=== PATIENT | male | born 1985 | race Caucasian/White ===

== ENCOUNTER 2020-06-07 14:42 | Emergency (ER) | payer SELFPAY ==
[~2020-06-07] VITALS: Ht 185.4 cm; Wt 73.5 kg
--- NOTE | 2020-06-07 15:14 | PHYS DOC ---
Past History Past Medical History: No Pertinent History (NINA AGUIRRE APRN) Past Surgical History: No Surgical History (NINA AGUIRRE APRN) Alcohol Use: None (NINA AGUIRRE APRN) Adult General Chief Complaint Chief Complaint: SKIN RASH/ABSCESS HPI HPI Patient is a 34 year old male patient who presents with abscess to right arm. States he had been shooting up amphetamines a few days ago, had missed his vein, and had noticed swelling and pain increasing since that time. States he had shot up in his other arm and has noticed a small red spot there as well. Denies any fevers, but states he has felt some chills on and off. He has not taken any medications for the discomfort. States pain seems to go down his arm, and he had some swelling in his right hand this morning but has gotten better. (NINA AGUIRRE APRN) Review of Systems Review of Systems Constitutional: Denies fever, states he felt some chills this morning. Eyes: Denies change in visual acuity, redness, or eye pain [] HENT: Denies nasal congestion or sore throat [] Respiratory: Denies cough or shortness of breath [] Cardiovascular: No additional information not addressed in HPI [] GI: Denies abdominal pain, nausea, vomiting, bloody stools or diarrhea [] : Denies dysuria or hematuria [] Musculoskeletal: Denies back pain, states pain to left elbow [] Integument: reports swelling and abscess to right arm, small erythematous area to left arm. Neurologic: Denies headache, focal weakness or sensory changes [] Endocrine: Denies polyuria or polydipsia [] All other systems were reviewed and found to be within normal limits, except as documented in this note. (NINA AGUIRRE APRN) Current Medications Current Medications Current Medications Medications (Trade) Dose Ordered Sig/Nile Start Time Stop Time Status Last Admin Dose Admin Ceftriaxone Sodium 1 gm/ Sodium Chloride 50 ml @ 100 mls/hr 1X ONCE 06/07/20 15:15 06/07/20 15:44 UNV (NINA AGUIRRE APRN) Physical Exam Physical Exam Constitutional: Well developed, well nourished, no acute distress, non-toxic appearance. [] HENT: Normocephalic, atraumatic, bilateral external ears normal, oropharynx moist, no oral exudates, nose normal. [] Eyes: PERRLA, EOMI, conjunctiva normal, no discharge. [] Neck: Normal range of motion, no tenderness, supple, no stridor. [] Cardiovascular:Heart rate regular rhythm, no murmur [] Lungs & Thorax: Bilateral breath sounds clear to auscultation [] Abdomen: Bowel sounds normal, soft, no tenderness, no masses, no pulsatile masses. [] Skin: Warm, dry,[] 8 cm diameter firm abscess to right forearm, radial side, with minimal erythema, tenderness. Swelling surrounding abscess. no streaking to upper arm, no tenderness or lesions noted to upper arm. Left forearm with 1.5 cm erythematous area without abscess noted. Back: No tenderness, no CVA tenderness. [] Extremities: No tenderness, no cyanosis, no clubbing, ROM intact, no edema. [] Neurologic: Alert and oriented X 3, normal motor function, normal sensory function, no focal deficits noted. [] sensation and motor intact to all digits Psychologic: Affect normal, judgement normal, mood normal. [] (NINA AGUIRRE APRN) Current Patient Data Vital Signs Vital Signs Date Time Temp Pulse Resp B/P (MAP) Pulse Ox O2 Delivery O2 Flow Rate FiO2 06/07/20 14:56 98.4 94 16 125/74 (91) 100 Room Air (NINA AGUIRRE APRN) EKG EKG [] (NINA AGUIRRE APRN) Radiology/Procedures Radiology/Procedures PATIENT: NORBERT BARAJAS LACCOUNT: [id number]#: [id number] : 1985 LOCATION: ER AGE: 34 SEX: M EXAM STATUS: REG ER ORD. PHYSICIAN: NINA AGUIRRE APRN REASON: swelling PROCEDURE: CT UPPR EXTREMTY WO CONTRST RT CT of the right forearm without contrast dated 06/07/2020. No comparison available. CLINICAL INDICATION: Pain and swelling. TECHNIQUE: Contiguous axial imaging of the right forearm performed with thin cut coronal and sagittal reconstruction. One or more of the following individualized dose reduction techniques were utilized for this examination: 1. Automated exposure control 2. Adjustment of the mA and/or kV according to patient size 3. Use of iterative reconstruction technique. FINDINGS: Bony alignment is anatomic. No displaced fracture. No periostitis or bone destruction. There is patchy edema throughout the subcutaneous tissues of the forearm. There is a heterogeneous hypodense mass within the brachioradialis muscle anteriorly and laterally that measures 2.7 x 2.5 x 4.3 cm the lesion is not well evaluated in the absence of contrast material but appears to extend into or compress the brachioradialis muscle with lobular extension into the subcutaneous tissues. The lesion results in some mass effect and there may be some mild compression of the radial neurovascular bundle. No additional mass or fluid collection. Subcutaneous edema extends from the wrist to the elbow. No definite elbow joint effusion. IMPRESSION: 1. Diffuse subcutaneous edema, nonspecific. Consider cellulitis. Neurogenic or vasogenic causes of edema are also possible. 2. There is a hypodense mass or complex fluid collection at the anterior lateral proximal forearm that appears to extend into the substance of the brachioradialis muscle. This is of uncertain etiology could represent hematoma or abscess. A soft tissue neoplasm cannot be excluded. If indicated, MRI with and without contrast and better evaluate. 3. No acute bony abnormality. Electronically signed by: Oscar Pacheco MD (06/07/2020 3:33 PM) [id number] [] (NINA AGUIRRE APRN) Heart Score Risk Factors: Risk Factors: DM, Current or recent (<one month) smoker, HTN, HLP, family history of CAD, obesity. Risk Scores: Risk Factors: DM, Current or recent (<one month) smoker, HTN, HLP, family history of CAD, obesity. (NINA AGUIRRE APRN) Course & Med Decision Making Course & Med Decision Making Pertinent Labs and Imaging studies reviewed. (See chart for details) []Discussed labs and imaging with patient, with recommendation for admission for IV ABx and possible clean-out of wound with abscess located under muscle. States he does not want to stay here, he wants to go somewhere like a public hospital where he won't be sued to collect on his bill. States he does not want an antibiotic prescription, he just wants to leave and go somewhere else. Offered transfer to [facility] for admission, again states he doesn't want to go there as they will also try to hermelindo him to collect. Advise patient of financial assistance program at this hospital but remains uninterested, starts to pull out IV, asking for AMA paperwork. Patient departing facility AMA, refusing Rx for antibiotics as well. States he is going to take himself or find a ride to a public hospital. (NINA AGUIRRE APRN) Dragon Disclaimer Dragon Disclaimer This electronic medical record was generated, in whole or in part, using a voice recognition dictation system. (NINA AGUIRRE APRN) Departure Departure: Impression: Primary Impression: Sepsis Additional Impressions: Lactic acidosis Abscess Drug abuse, amphetamine type Disposition: AMA/ELOPED/LWBS Condition: STABLE Referrals: PCP,NO (PCP) Attending Signature Attending Signature I have reviewed the PA/WAFER BATTER MIXER's note and plan of care. I was available for consultation as needed during the patient's visit in the emergency department. I agree with the clinical impression, plan, and disposition. (OSCAR MIRZA DO) Problem Qualifiers Primary Impression: Sepsis Sepsis type: sepsis due to unspecified organism Sepsis acute organ dy sfunction status: without acute organ dysfunction Qualified Codes: A41.9 - Sepsis, unspecified organism NINA AGUIRRE APRN Jun 07, 2020 15:14 OSCAR MIRZA DO Jun 07, 2020 18:15
[2020-06-07] MEDS ORDERED: cefTRIAXone SODIUM 1 GM VIAL ONE (15:24)
[2020-06-07] MEDS ORDERED: IV NORMAL SALINE 50ML 50 ML ONE (15:24)
--- NOTE | 2020-06-07 15:35 | RAD ---
CT of the right forearm without contrast dated 06/07/2020. No comparison available. CLINICAL INDICATION: Pain and swelling. TECHNIQUE: Contiguous axial imaging of the right forearm performed with thin cut coronal and sagittal reconstruc tion. One or more of the following individualized dose reduction techniques were utilized for this examinat ion: 1. Automated exposure control 2. Adjustment of the mA and/or kV according to patient size 3. Use of iterative reconstruction technique. FINDINGS: Bony alignment is anatomic. No displaced fracture. No periostitis or bone destruction. There is patchy edema throughout the subcutaneous tissues of the forearm. There is a heterogeneous hy podense mass within the brachioradialis muscle anteriorly and laterally that measures 2.7 x 2.5 x 4.3 cm the lesion is not well evaluated in the absence of contrast material but appears to extend into o r compress the brachioradialis muscle with lobular extension into the subcutaneous tissues. The lesio n results in some mass effect and there may be some mild compression of the radial neurovascular bund le. No additional mass or fluid collection. Subcutaneous edema extends from the wrist to the elbow. N o definite elbow joint effusion. IMPRESSION: 1. Diffuse subcutaneous edema, nonspecific. Consider cellulitis. Neurogenic or vasogenic causes of ed [place] are also possible. 2. There is a hypodense mass or complex fluid collection at the anterior lateral proximal forearm khoi t appears to extend into the substance of the brachioradialis muscle. This is of uncertain etiology c ould represent hematoma or abscess. A soft tissue neoplasm cannot be excluded. If indicated, MRI with and without contrast and better evaluate. 3. No acute bony abnormality. Electronically signed by: Oscar Pacheco MD (06/07/2020 3:33 PM) [id number]
[2020-06-07 16:09] LABS: BASO # 0.2 x10^3/uL (0.0-0.2); BASO % 1 % (0-3); EOS # 0.4 x10^3/uL (0.0-0.7); EOS % 3 % (0-3); HEMATOCRIT 37.6 % (39.0-53.0); HEMOGLOBIN 12.2 g/dL (13.0-17.5); LYMPH # 2.8 x10^3/uL (1.0-4.8); LYMPH % 15 % (24-48); MEAN CORPUSCULAR HEMOGLOBIN 28 pg (25-35); MEAN CORPUSCULAR HGB CONC 32 g/dL (31-37); MEAN CORPUSCULAR VOLUME 85 fL (79-100); MONO # 2.1 x10^3/uL (0.0-1.1); MONO % 12 % (0-9); NEUT # 12.5 x10^3uL (1.8-7.7); NEUT % 70 % (31-73); PLATELET COUNT 375 x10^3/uL (140-400); RED BLOOD COUNT 4.42 x10^6/uL (4.30-5.70); RED CELL DISTRIBUTION WIDTH 15.6 % (11.5-14.5); WHITE BLOOD COUNT 17.9 x10^3/uL (4.0-11.0)
[2020-06-07 16:37] LABS: ALBUMIN/GLOBULIN RATIO 0.8 (1.0-1.7); ALK PHOS 98 U/L (46-116); ALT (SGPT) 114 U/L (16-63); ANION GAP 9 (6-14); AST (SGOT) 79 U/L (15-37); BLOOD UREA NITROGEN 32 mg/dL (8-26); BUN/CREATININE RATIO 21 (6-20); CALCIUM 8.2 mg/dL (8.5-10.1); CHLORIDE 101 mmol/L (98-107); CREATININE 1.5 mg/dL (0.7-1.3); GFR 53.3; GLUCOSE 64 mg/dL (70-99); POTASSIUM 3.4 mmol/L (3.5-5.1); SODIUM 135 mmol/L (136-145); TOTAL BILIRUBIN 0.3 mg/dL (0.2-1.0); TOTAL PROTEIN 6.6 g/dL (6.4-8.2)
[2020-06-07 17:13] VITALS: BP 110/56
[2020-06-07] MEDS ORDERED: IV NORMAL SALINE 1,000ML 1,000 ML IV ONE ×3 (17:15)
[2020-06-07] MEDS ORDERED: IV NORMAL SALINE 500ML 500 ML IV ONE (17:15)
[2020-06-07] MEDS ORDERED: VANCOMYCIN 2 GM in IV NORMAL SALINE 500ML 500 ML IV ONE (17:30)
== END 2020-06-07 17:22 | disposition left against medical advice (07) ==
LOC: ER 14:42
DX: A41.9 Sepsis, unspecified organism (principal); E87.2 Acidosis; L02.413 Cutaneous abscess of right upper limb; F15.10 Other stimulant abuse, uncomplicated
CPT/HCPCS: 36415; 73200; 80053; 83605; 85025; 87040; 96365; 99284; J0696

== ENCOUNTER 2020-08-21 21:36 | Emergency (ER) | payer SELFPAY ==
[~2020-08-21] VITALS: Ht 185.4 cm; Wt 73.5 kg
[2020-08-22] MEDS ORDERED: IBUPROFEN 400 MG TABLET. PO ONE (00:15)
[2020-08-22] MEDS ORDERED: ACETAMINOPHEN 500 MG TABLET PO ONE (00:15)
[2020-08-22] MEDS ORDERED: CLINDAMYCIN HCL 150 MG CAPSULE PO ONE (00:15)
[2020-08-22] MEDS ORDERED: CLIN150C15 PO (00:16)
--- NOTE | 2020-08-22 00:17 | PHYS DOC ---
Past History Past Medical History: Bipolar, Other Additional Past Medical Histor: MRSA, ADHD, PTSD Past Surgical History: No Surgical History Additional Past Surgical Histo: R hand sx Alcohol Use: None Additional Alcohol Information: sober Adult General Chief Complaint Chief Complaint: SKIN RASH/ABSCESS HPI HPI Patient is a 35-year-old male who presents with a lesion on left and right knees. States he had ingrown hairs in these areas any popped him and kept pushing on them over the last several days and now they seem infected. Denies any recent travel, traumas, fevers, chest pain, shortness of breath, abdominal pain, nausea, vomiting. Review of Systems Review of Systems Review of systems otherwise unremarkable except noted in HPI Allergies Allergies Allergies Coded Allergies Type Severity Reaction Last Updated Verified haloperidol Allergy Unknown 06/07/20 Yes Physical Exam Physical Exam Constitutional: Well developed, well nourished, no acute distress, non-toxic appearance. [] Neck: Normal range of motion, no tenderness, Cardiovascular:Heart rate regular rhythm, no murmur [] Lungs & Thorax: Bilateral breath sounds clear to auscultation [] Abdomen: Bowel sounds normal, soft, no tenderness, no masses, no pulsatile masses. [] Extremities: Patient has 2 areas, on bilateral knees just medial to the patella with some erythema, and tenderness with no obvious fluctuance or induration. Couple of abrasions apparent. Neurologic: Alert and oriented X 3, normal motor function, normal sensory function, no focal deficits noted. [] Psychologic: Affect normal, judgement normal, mood normal. [] Current Patient Data Vital Signs Vital Signs Date Time Temp Pulse Resp B/P (MAP) Pulse Ox O2 Delivery O2 Flow Rate FiO2 08/21/20 22:26 99.2 100 18 146/85 (105) 98 Room Air EKG EKG [] Radiology/Procedures Radiology/Procedures [] Heart Score C/O Chest Pain: No Risk Factors: Risk Factors: DM, Current or recent (<one month) smoker, HTN, HLP, family history of CAD, obesity. Risk Scores: Risk Factors: DM, Current or recent (<one month) smoker, HTN, HLP, family history of CAD, obesity. Course & Med Decision Making Course & Med Decision Making Patient is a 35-year-old male who presents with skin infection Vital signs not concerning. Physical exam noted above. Given Tylenol and ibuprofen. Patient stated he did not want any narcotic medications. Patient started on clindamycin in the emergency department for cellulitis. Given contact information for [facility]. Advised to call first thing in the morning and set up a follow-up appointment within the next week for a wound check. Gave strict return precautions to the ED. Patient grateful, verbalized understanding and agreed with plan of discharge. [] Dragon Disclaimer Dragon Disclaimer This electronic medical record was generated, in whole or in part, using a voice recognition dictation system. Departure Departure: Impression: Primary Impression: Cellulitis Disposition: 01 DC HOME SELF CARE/HOMELESS Condition: GOOD Referrals: PCP,NO (PCP) Patient Instructions: Cellulitis Additional Instructions: Please read all of the attached information. You can use Tylenol, and ibuprofen as needed at home for pain control. Please take all your antibiotics as prescribed. You can establish care with a primary care physician at [facility]. Please call them first thing in the morning to set up a follow-up appointment and establish care at [phone] Please come back to the emergency department with new or concerning symptoms as discussed. Scripts Clindamycin Hcl (CLINDAMYCIN HCL) 150 Mg Capsule 2 CAP PO TID for cellulitis for 10 Days, #60 CAP Prov: LIANET ATKINSON MD 08/22/20 LIANET ATKINSON MD Aug 22, 2020 00:17
[2020-08-22 00:42] VITALS: BP 138/85
== END 2020-08-22 00:42 | disposition home or self-care (01) ==
LOC: ER 21:36
DX: L03.116 Cellulitis of left lower limb (principal); L03.115 Cellulitis of right lower limb; F31.9 Bipolar disorder, unspecified; Z86.14 Personal history of Methicillin resistant Staphylococcus aureus infection; F43.10 Post-traumatic stress disorder, unspecified; F90.9 Attention-deficit hyperactivity disorder, unspecified type; Z88.8 Allergy status to other drugs, medicaments and biological substances
CPT/HCPCS: 99284

== ENCOUNTER 2020-08-29 21:02 | Emergency (ER) | payer SELFPAY ==
[~2020-08-29] VITALS: Ht 185.4 cm; Wt 73.5 kg
[~2020-08-29 21:02] MED LIST: CLIN150C15 PO
[2020-08-29 22:13] LABS: BASO # 0.1 x10^3/uL (0.0-0.2); BASO % 1 % (0-3); EOS # 0.7 x10^3/uL (0.0-0.7); EOS % 4 % (0-3); HEMATOCRIT 35.3 % (39.0-53.0); HEMOGLOBIN 11.5 g/dL (13.0-17.5); LYMPH # 3.9 x10^3/uL (1.0-4.8); LYMPH % 24 % (24-48); MEAN CORPUSCULAR HEMOGLOBIN 28 pg (25-35); MEAN CORPUSCULAR HGB CONC 33 g/dL (31-37); MEAN CORPUSCULAR VOLUME 87 fL (79-100); MONO # 2.1 x10^3/uL (0.0-1.1); MONO % 13 % (0-9); NEUT # 9.6 x10^3uL (1.8-7.7); NEUT % 59 % (31-73); PLATELET COUNT 388 x10^3/uL (140-400); RED BLOOD COUNT 4.06 x10^6/uL (4.30-5.70); RED CELL DISTRIBUTION WIDTH 15.5 % (11.5-14.5); WHITE BLOOD COUNT 16.3 x10^3/uL (4.0-11.0)
[2020-08-29 22:24] LABS: CALCIUM 8.4 mg/dL (8.5-10.1); CREATININE 1.4 mg/dL (0.7-1.3); GFR 57.3; POTASSIUM 4.3 mmol/L (3.5-5.1)
--- NOTE | 2020-08-29 23:14 | RAD ---
Exam: Right foot 3 views INDICATION: Injury 2 days ago, stepped on rake TECHNIQUE: Frontal, lateral and oblique views of the right foot Comparisons: None FINDINGS: Bone mineralization is normal. No acute or healed fractures. There is mild soft tissue swelling at th e forefoot. Joint spaces are well-maintained. IMPRESSION: Mild soft tissue swelling at the forefoot without underlying osseous abnormality or radiopaque foreig n body identified. Electronically signed by: Rey Colin MD (08/29/2020 11:12 PM) [place]
--- NOTE | 2020-08-29 23:33 | PHYS DOC ---
Past History Past Medical History: Anxiety, Bipolar, Cancer, Schizophrenia, Other Additional Past Medical Histor: MRSA, ADHD, PTSD Past Surgical History: Other Additional Past Surgical Histo: R hand sx Alcohol Use: None General Adult EDM: Chief Complaint: FOOT INJURY PAIN HPI: HPI: ".. I stepped on a rake two days.. ago... and now... my whole foot and leg is swollen.. and red... I am already on Clindamycin.. for another infection''' Patient is a 35 year old male who presents with above hx and complaints of Rt. foot pain. Patient has a puncture jamarcus on right heel that appears to have embedded material under the skin. Patient's entire right foot swollen red and edema test as well as streaking up into the calf. Patient states she has been taking clindamycin as previously directed. Patient does have a history of MRSA. Patient denies any history of immunosuppression. Patient denies any recent travel. Patient denies any specific ill contacts.. Patient does have a history of anxiety, depression, polysubstance abuse and smokes approximately 2 packs of cigarettes a day. Patient does not follow-up with primary care. Review of Systems: Review of Systems: Constitutional: Complains of fever or chills Eyes: Denies change in visual acuity HENT: Denies nasal congestion or sore throat Respiratory: Denies cough or shortness of breath Cardiovascular: Denies chest pain or edema GI: Denies abdominal pain, nausea, vomiting, bloody stools or diarrhea : Denies dysuria Musculoskeletal: Complains of right foot pain. Integument: Complains of lower right leg cellulitis and rash Neurologic: Denies headache, focal weakness or sensory changes Endocrine: Denies polyuria or polydipsia Lymphatic: Denies swollen glands Psychiatric: Denies depression or anxiety Family History: Family History: Noncontributory Current Medications: Current Meds: Clindamycin-153 times a day See nursing for home meds Allergies: Allergies: Allergies Coded Allergies Type Severity Reaction Last Updated Verified haloperidol Allergy Unknown 06/07/20 Yes Physical Exam: PE: Constitutional: Well developed, well nourished, no acute distress, non-toxic appearance. [] HENT: Normocephalic, atraumatic, bilateral external ears normal, oropharynx moist, no oral exudates, nose normal. [] Eyes: PERRLA, EOMI, conjunctiva normal, no discharge. [] Neck: Normal range of motion, no tenderness, supple, no stridor. [] Cardiovascular:Heart rate regular rhythm, no murmur [] Lungs & Thorax: Bilateral breath sounds clear to auscultation [] Abdomen: Bowel sounds normal, soft, no tenderness, no masses, no pulsatile masses. [] Skin: Warm, dry, no erythema, no rash. [] Back: No tenderness, no CVA tenderness. [] Extremities: No tenderness, no cyanosis, no clubbing, ROM intact, no edema. [] Neurologic: Alert and oriented X 3, normal motor function, normal sensory function, no focal deficits noted. [] Psychologic: Affect normal, judgement normal, mood normal. [] Current Patient Data: Labs: Laboratory Tests Test 08/29/20 21:56 White Blood Count 16.3 x10^3/uL (4.0-11.0) H Red Blood Count 4.06 x10^6/uL (4.30-5.70) L Hemoglobin 11.5 g/dL (13.0-17.5) L Hematocrit 35.3 % (39.0-53.0) L Mean Corpuscular Volume 87 fL (79-100) Mean Corpuscular Hemoglobin 28 pg (25-35) Mean Corpuscular Hemoglobin Concent 33 g/dL (31-37) Red Cell Distribution Width 15.5 % (11.5-14.5) H Platelet Count 388 x10^3/uL (140-400) Neutrophils (%) (Auto) 59 % (31-73) Lymphocytes (%) (Auto) 24 % (24-48) Monocytes (%) (Auto) 13 % (0-9) H Eosinophils (%) (Auto) 4 % (0-3) H Basophils (%) (Auto) 1 % (0-3) Neutrophils # (Auto) 9.6 x10^3uL (1.8-7.7) H Lymphocytes # (Auto) 3.9 x10^3/uL (1.0-4.8) Monocytes # (Auto) 2.1 x10^3/uL (0.0-1.1) H Eosinophils # (Auto) 0.7 x10^3/uL (0.0-0.7) Basophils # (Auto) 0.1 x10^3/uL (0.0-0.2) Sodium Level 137 mmol/L (136-145) Potassium Level 4.3 mmol/L (3.5-5.1) Chloride Level 103 mmol/L (98-107) Carbon Dioxide Level 28 mmol/L (21-32) Anion Gap 6 (6-14) Blood Urea Nitrogen 27 mg/dL (8-26) H Creatinine 1.4 mg/dL (0.7-1.3) H Estimated GFR (Cockcroft-Gault) 57.3 Glucose Level 101 mg/dL (70-99) H Lactic Acid Level 0.8 mmol/L (0.4-2.0) Calcium Level 8.4 mg/dL (8.5-10.1) L Troponin I Quantitative < 0.017 ng/mL (0-0.055) Vital Signs: Vital Signs Date Time Temp Pulse Resp B/P (MAP) Pulse Ox O2 Delivery O2 Flow Rate FiO2 08/29/20 21:44 98.7 105 16 160/92 (114) 97 Room Air EKG: EKG: [] Radiology/Procedures: Radiology/Procedures: [][address] [address] IMAGING REPORT Signed PATIENT: NORBERT BARAJAS ACCOUNT: [id number] : 1985 LOCATION: ER AGE: 35 SEX: M EXAM STATUS: REG ER ORD. PHYSICIAN: SARAH COVINGTON MD REASON: Injury 2 days ago, stepped on rake; swelling, redness and pain PROCEDURE: FOOT RIGHT 3V Exam: Right foot 3 views INDICATION: Injury 2 days ago, stepped on rake TECHNIQUE: Frontal, lateral and oblique views of the right foot Comparisons: None FINDINGS: Bone mineralization is normal. No acute or healed fractures. There is mild soft tissue swelling at the forefoot. Joint spaces are well-maintained. IMPRESSION: Mild soft tissue swelling at the forefoot without underlying osseous abnormality or radiopaque foreign body identified. Electronically signed by: Rey Santos MD (08/29/2020 11:12 PM) [facility] DICTATED AND SIGNED BY: REY SANTOS MD DATE: 08/29/20 [id number] CC: SARAH COVINGTON MD; EMERGENCY,DEPARTMENT; PCP,SUZY ~MTH0 0 Heart Score: C/O Chest Pain: N/A Risk Factors: Risk Factors: DM, Current or recent (<one month) smoker, HTN, HLP, family history of CAD, obesity. Risk Scores: Score 0 - 3: 2.5% MACE over next 6 weeks - Discharge Home Score 4 - 6: 20.3% MACE over next 6 weeks - Admit for Clinical Observation Score 7 - 10: 72.7% MACE over next 6 weeks - Early Invasive Strategies Course & Med Decision Making: Course & Med Decision Making Pertinent Labs and Imaging studies reviewed. (See chart for details) Procedure note-wound care-right foot cleaned with Betadine. Injected the puncture site on heel with 2% lidocaine. Used a punch biopsy to remove overlying tissue. Did remove material which appeared to be foam rubber or other foreign body. Patient did have history of stepping on the right with tennis shoes. Did have removal of a collection of approximately 1 cm of hemorrhagic pus after the punch biopsy. Discussed with patient need for IV antibiotics. Patient agreeable to admission. Discussed presentation with . However just before patient was to be transferred ported up to the main hospital, patient demanded to be allowed to smoke. Sprained patient there is no swelling on hospital promptly. Would supply him with a nicotine patch. Patient states he did not want a nicotine patch, and was going to sign out [facility] and go to the hospital that allowed him to smoke. Discussed risks with patient and risk of possible worse infection . Begged patient to reach consider his decision to leave AMA. The patient exhibits UCAR capacity. Impression: 1 . Hx.puncture wound to right heel. 2. Cellulitis right foot heel and leg 3. Tobacco dependency 4. Leukocytosis 16.3 5. Dehydration-BUN 27 creatinine 1.4 6. Mild anemia hemoglobin 11.5 [] Dragon Disclaimer: Abbe Disclaimer: This electronic medical record was generated, in whole or in part, using a voice recognition dictation system. Departure Departure: Referrals: PCP,SUZY (PCP) SARAH COVINGTON MD Aug 29, 2020 23:33
[2020-08-30] MEDS ORDERED: VANCOMYCIN PER PHARMACY MC PRN
[2020-08-30] MEDS ORDERED: ACETAMINOPHEN 325 MG TABLET PO PRN
[2020-08-30] MEDS ORDERED: DIPH,PERTUSS(ACELL),TET VAC/PF 0.5 ML SYRINGE. VAX IM ONE (00:30)
[2020-08-30] MEDS ORDERED: VANCOMYCIN 1 GM in IV NORMAL SALINE 250ML 250 ML IV ONE ×2 (00:30)
[2020-08-30] MEDS ORDERED: VANCOMYCIN 1.75 GM in IV NORMAL SALINE 500ML 500 ML IV ONE (00:30)
[2020-08-30] MEDS ORDERED: LIDOCAINE 2% 20 ML VIAL. IJ ONE (00:30)
[2020-08-30] MEDS ORDERED: IV NORMAL SALINE 500ML 0 ML ONE (00:46)
[2020-08-30] MEDS ORDERED: IV NORMAL SALINE 50ML 0 ML ONE (00:46)
[2020-08-30] MEDS ORDERED: cefTRIAXone SODIUM 1 GM VIAL ONE (00:46)
[2020-08-30] MEDS ORDERED: VANCOMYCIN 1 GM VIAL. ONE (00:46)
[2020-08-30 00:50] VITALS: BP 151/57
== END 2020-08-30 01:30 | disposition left against medical advice (07) ==
LOC: ER 21:02 → UNDOADMIN 08-30 00:50 → ICU 08-30 00:50 → ER 08-30 01:30
DX: L03.115 Cellulitis of right lower limb (principal); D72.829 Elevated white blood cell count, unspecified; E86.0 Dehydration; D64.9 Anemia, unspecified; F17.200 Nicotine dependence, unspecified, uncomplicated; F41.9 Anxiety disorder, unspecified; F31.9 Bipolar disorder, unspecified; F20.9 Schizophrenia, unspecified; Z88.8 Allergy status to other drugs, medicaments and biological substances
CPT/HCPCS: 11104; 36415; 73630; 80048; 83605; 84484; 85025; 87040; 99284; 99285